=== PATIENT | male | born 1995 | race Caucasian/White ===

== ENCOUNTER 2017-03-12 14:05 | Emergency (ER) | payer MEDICAID ==
[~2017-03-12] VITALS: Ht 165.1 cm; Wt 61.2 kg
[2017-03-12 14:38] VITALS: BP 142/73
--- NOTE | 2017-03-12 19:37 | NUR ---
TO ER OF2
[2017-03-12] MEDS ORDERED: DEXAMETHASONE 10 MG/ML VIAL PO ONE (19:55)
[2017-03-12 21:15] LABS: FREE T4 (FREE THYROXINE) 1.15 ng/dL (0.76-1.46); THYROID STIMULATING HORMONE 0.61 uIU/mL (0.34-3.76)
[2017-03-12] MEDS: LIDOCAINE VISCOUS 2% 20 ML UDC PO ONE ×2 (21:30→21:38)
[2017-03-12 21:50] VITALS: BP 134/68
--- NOTE | 2017-03-12 21:50 | NUR ---
Patient discharged with v/s stable. Written and verbal after care instructions given and explained. Patient alert, oriented and verbalized understanding of instructions. Ambulatory with steady gait. All questions addressed prior to discharge. ID band removed. Patient advised to follow up with PMD. Rx of [place] and naproxen given. Patient educated on indication of medication including possible reaction and side effects. Opportunity to ask questions provided and answered.
== END 2017-03-12 21:50 | disposition home or self-care (01) ==
LOC: MED 14:05
DX: J02.9 Acute pharyngitis, unspecified (principal); R05 Cough; R50.9 Fever, unspecified
CPT/HCPCS: 36415; 70360; 84439; 84443; 99285; J1100

== ENCOUNTER 2018-05-31 22:01 | Emergency (ER) | payer MEDICAID ==
[~2018-05-31] VITALS: Ht 165.1 cm; Wt 64.5 kg
[2018-05-31 22:03] VITALS: BP 122/72
--- NOTE | 2018-05-31 22:08 | NUR ---
pt assisted back to lobby in stable condition
--- NOTE | 2018-05-31 23:07 | NUR ---
Zeke farmer in [facility] - 05/31/18 at 2309 by [email or web address] PATIENT AMBULATED WITH MOTHER TO ER BED 1.
--- NOTE | 2018-05-31 23:15 | NUR ---
Patient ambulated to bed 4. RN evaluating patient at bedside.
--- NOTE | 2018-05-31 23:18 | NUR ---
Dr. Miller evaluating patient at bedside.
--- NOTE | 2018-05-31 23:20 | NUR ---
23/M CAME IN ED, C/O RASH, X3 DAYS. MODERATE AMOUNT PINPOINT MILDLY RED BUMPS NOTED ON DORSAL ASPECT OF BL FEET. PT REPORTS RASH WORSENING TODAY, SPREADING UP BLE. AIRWAY PATENT, RR EVEN AND UNLABORED. PT DENIES CP, SOB, N/V/D. PT DENIES ANY PAIN. REPORTS ITCHING. ER MD AWARE.
[2018-05-31] MEDS ORDERED: predniSONE 20 MG TAB PO ONE (23:30)
[2018-06-01 00:02] LABS: BASOPHILS # (AUTO) 0.1 K/uL (0.00-0.22); BASOPHILS % (AUTO) 1.2 % (0.0-2.0); EOSINOPHILS # (AUTO) 0.7 K/uL (0-0.4); EOSINOPHILS % (AUTO) 9.3 % (0.0-4.0); HEMATOCRIT 41.1 % (36-52); HEMOGLOBIN 13.8 g/dL (12.0-18.0); LYMPHOCYTES # (AUTO) 1.8 K/uL (2.0-11.5); LYMPHOCYTES % (AUTO) 22.7 % (20.5-51.1); MEAN CORPUSCULAR HEMOGLOBIN 29 pg (27-31); MEAN CORPUSCULAR HGB CONC 34 g/dL (33-37); MEAN CORPUSCULAR VOLUME 86.1 fL (80-94); MONOCYTES # (AUTO) 0.6 K/uL (0.8-1.0); MONOCYTES % (AUTO) 7.5 % (1.7-9.3); NEUTROPHILS # (AUTO) 4.7 K/uL (1.8-7.7); NEUTROPHILS % (AUTO) 59.3 % (42.2-75.2); PLATELET COUNT (AUTO) 306 K/uL (140-450); RED BLOOD CELL COUNT(AUTO) 4.77 MIL/uL (4.20-6.10); RED CELL DISTRIBUTION WIDTH 13.4 % (11.6-13.7); WHITE BLOOD COUNT (AUTO) 7.9 K/uL (4.8-10.8)
--- NOTE | 2018-06-01 00:18 | NUR ---
PT RESTING IN BED COMFORTABLY. VSS, PT DENIES ANY PAIN, PT REPORTS NO ITCHING AT THIS TIME. ALL NEEDS MET.
[2018-06-01 00:23] VITALS: BP 110/62
--- NOTE | 2018-06-01 00:24 | NUR ---
Patient discharged with v/s stable. Written and verbal after care instructions given and explained. Patient alert, oriented and verbalized understanding of instructions. Ambulatory with steady gait. All questions addressed prior to discharge. ID band removed. Patient advised to follow up with PMD. Rx of DIPHENYDRAMINE, PREDNISONE given. Patient educated on indication of medication including possible reaction and side effects. Opportunity to ask questions provided and answered.
== END 2018-06-01 00:24 | disposition home or self-care (01) ==
LOC: MED 22:01
DX: L23.9 Allergic contact dermatitis, unspecified cause (principal)
CPT/HCPCS: 36415; 85025; 99283; J7512; Q0163

== ENCOUNTER 2019-12-25 21:20 | Emergency (ER) | payer MEDICAID ==
[~2019-12-25] VITALS: Ht 165.1 cm; Wt 70.8 kg
[2019-12-25 21:34] VITALS: BP 136/82
[2019-12-25 22:45] VITALS: BP 136/82
== END 2019-12-25 22:45 | disposition home or self-care (01) ==
LOC: MED 21:20
DX: J02.8 Acute pharyngitis due to other specified organisms (principal)
CPT/HCPCS: 87081; 99283